=== PATIENT | male | born 1980 | race Caucasian/White ===

== ENCOUNTER 2024-11-29 14:59 | Inpatient (IN) | payer MEDICAID ==
[~2024-11-29] VITALS: Ht 172.7 cm; Wt 61.1 kg
[2024-11-29 15:08] VITALS: PULSE 76; RESP 18; O2SAT 100
--- NOTE | 2024-11-29 15:08 | ELECTROCARDIOGRAPH REPORT ---
[facility] [place] Test Date: 2024-11-29 Test Time: 15:05:48 Pat Name: ANUJ ROBBINS Department: EMERGENCY ROOM Room: Gender: M Shearer Operator: PM : 1980 Requested By: DEEDEE SZYMANSKI Order Number: [id number] Reading MD: Measurements Intervals [place] Rate: 77 P: 59 HI: 143 QRS: 32 QRSD: 94 T: 205 QT: 521 QTc: 590 Interpretive Statements Sinus rhythm Probable left atrial enlargement Probable LVH with secondary repol abnrm Abnormal T, probable ischemia, anterior leads Prolonged QT interval Please click the below link to view image of tracing.
--- NOTE | 2024-11-29 15:18 | HISTORY AND PHYSICAL ---
History & Physical Providers to CC ~ History of Present Illness Reason for Admit\Complaint: Shortness of breath History of Present Illness The presenting illness patient says he has recurrent bronchitis apart from that he denies any other medical history. He says for the last 4-5 days he is having increasing shortness of breath and some dry cough. He denies any fevers or chills. He denies any history of hypertension. He was transferred to us from [facility] for an elevated blood pressure of more than 230 systolic. Patient was given couple of doses of hydralazine and the blood pressure came down to 160s and he was transferred. Patient is noted on a chest x-ray to have bilateral pneumonias he also had a CTA done at [place]. Patient also noted to have an elevated BNP. Patient also noted to be severely hypoxemic and put him on a BiPAP machine. After his sister O2 sats have improved. Repeat labs from [facility] ordered by the ER physician are still pending. Allergies: Coded Allergies: No Known Allergies (Unverified , 11/29/24) Past Medical History Past Medical History Past medical history significant for probably underlying chronic bronchitis and COPD Past surgical history nothing of significance Social history he smokes more than a pack a day drinks couple of times a month denies any drug abuse Allergies are NKDA Family history nothing of significance Review of systems negative for all 10 systems reviewed Exam Vitals: Vital Signs Date Time Temp Pulse Resp B/P (MAP) Pulse Ox O2 Delivery O2 Flow Rate FiO2 11/29/24 15:01 75 24 124/92 99 General: Patient is alert and oriented x4 in no acute distress lying down comfortably speaking in full sentences in spite of being on a BiPAP machine HEENT normocephalic nontraumatic head with very poor personal hygiene CVS first and second heart sounds are and sinus tachycardia Respiratory system has both rhonchi and crackles in bilateral bases and minimal expiratory wheezing right base more than left Abdomen is soft bowel sounds are positive it is nontender nondistended there is a golf ball size hematoma in the right lower quadrant which patient or myself or unable to explain he also has some scabs over his infraumbilical area Extremities no clubbing cyanosis or edema Neurological exam no focal deficits Additional Plan Assessment and plan -bilateral pneumonia Patient pancultured at [place] Started on IV Rocephin and azithromycin which I will continue We will also check his COVID and influenza -hypertensive emergency we will use hydralazine and clonidine p.r.n. for now -questionable underlying COPD Start the patient on nebulizer treatments p.r.n. -acute respiratory failure secondary to above Continue BiPAP ck abg's -hematoma over right lower quadrant Monitor -questionable CHF Check echocardiogram Diurese the patient Daily weights strict I&Os fluid restriction -check urine tox screen Even though patient denies any history of drug abuse -nicotine abuse patient advised against it -mildly elevated troponins monitor Do serial troponins and EKGs -patient is a full code Patient is started on DVT and GI prophylaxis Date of Service: Nov 29, 2024 Billing Provider: VINEET GREY MD Common Visit Codes: [id number] INP/OBS CARE (HIGH) VINEET GREY MD Nov 29, 2024 15:18
[2024-11-29] MEDS ORDERED: ondansetron/PF 4mg/2ml inj IV PRN (15:20)
[2024-11-29] MEDS ORDERED: HYDROcodone/acetaminophen 5mg/325mg tablet PO PRN (15:20)
[2024-11-29] MEDS ORDERED: magnesium sulf-water 2g/50mL 50 ML IV PRN (15:20)
[2024-11-29] MEDS ORDERED: magnesium sulf-water 4G/100mL 100 ML IV PRN (15:20)
[2024-11-29] MEDS ORDERED: ipratropium/albuterol 3ml nebule NEB PRN (15:20)
[2024-11-29] MEDS ORDERED: potassium Cl 40MEQ/1/2NS 520ml 520 ML IV PRN (15:20)
[2024-11-29] MEDS ORDERED: HYDROcodone/acetaminophen 10/325mg tab PO PRN (15:20)
[2024-11-29] MEDS ORDERED: mag hydrox/Alum hydrox/simeth 30ml oral suspension PO PRN (15:20)
[2024-11-29] MEDS ORDERED: magnesium Cl slow-release 64mg tablet PO PRN (15:20)
[2024-11-29 15:27] LABS: ABG BASE EXCESS -3.5 mmol/L (-2.0-3.0); ABG HCO3 20.1 mmol/L (21.0-28.0); ABG OXYGEN SATURATION 99.5 % (94.0-98.0); ABG PCO2 (T) 31.2 mmHg (35.0-48.0); ABG PH (T) 7.425 (7.350-7.450); ABG PO2 (T) 299.0 mmHg (83.0-108.0); ALLEN'S TEST POSITIVE; FCOHb 0.7 % (0.5-1.5); FHHb 0.5 % (0.0-5.0); FIO2 70.0 mmHg/%; FMetHb 0.3 % (0.0-1.5); FO2Hb 98.5 % (94.0-98.0); MODE MASK - BIPAP; PATIENT TEMPERATURE 36.4; RESPIRATORY RATE 16 b/min; TOTAL HEMOGLOBIN 12.8 G/dl (13.5-17.5)
[2024-11-29 15:32] LABS: MEAN PLATELET VOLUME 10.0 FL (7.4-10.4); RED CELL DISTRIBUTION WIDTH 14.4 % (11.5-14.5)
--- NOTE | 2024-11-29 15:53 | RADIOLOGY REPORT ---
EXAM: DI CHEST,SINGLE VIEW CLINICAL HISTORY: CHEST PAIN TECHNIQUE: Single AP view of the chest WID: COMPARISON: None FINDINGS: Lines and tubes: None Chest: The heart size and pulmonary vasculature is within normal limits. Ducts over the aortic arch. Diffuse interstitial opacities in the lungs. Small bilateral pleural effusions. No pneumothorax. The osseous structures are grossly intact. IMPRESSION: 1. Diffuse interstitial opacities of the lungs. DDX includes pulmonary edema, atypical pneumonia, or fibrosis / scarring. 2. Small bilateral pleural effusions.
[2024-11-29 15:55] LABS: CREATININE 2.34 MG/DL (0.60-1.10); TOTAL CARBON DIOXIDE 24.4 MMOL/L (24-32); eCRCL 39 ML/MIN; eGFR 31 ML/MIN
[2024-11-29 16:04] VITALS: PULSE 70; RESP 19; O2SAT 95
[2024-11-29 16:07] VITALS: PULSE 70; RESP 19; O2SAT 95
[2024-11-29] MEDS: potassium CL 10mEq/100ml bag 100 ML IV SCH (16:12)
--- NOTE | 2024-11-29 16:21 | Physician Documentation ---
History of Present Illness ~ Chief Complaint: Respiratory Distress Stated Complaint: SOB Time Seen by MD: 15:01 Source: patient, other Mode of Arrival: EMS, Stretcher Exam Limitations: no limitations HPI Patient transferred to sc from [facility]. Patient with no significant medical history but does not really see a doctor. Presented to [facility] this morning with 3-4 days of cough with green sputum production. Also presented with high blood pressure at 233/130. Initially had a white count of 13 with a potassium of 2.1 and a slightly elevated troponin of 0.123. [place] [address] [place] angio was negative for PE but showed atypical bilateral infiltrates. He was given Rocephin and azithromycin along with Lovenox and aspirin. Lactate was normal. He was given 2 doses of labetalol at 15 mg and 20 kg which his blood pressure improved to 160/100. He was given 40 of potassium IV and 40 of potassium p.o.. He is a smoker. Initially he was 90% on room air. Currently in our ER he denies any pain. He states he is feeling better sitting on the BiPAP. He was placed on BiPAP just has the flight team arrived at [facility] because he had become more short of breath. He had received 2 L of fluids at [facility]. Medication Reconciliation Allergies: Coded Allergies: No Known Allergies (Unverified , 11/29/24) Past Medical History Smoking Status: Current every day smoker Review of Systems All Other Systems at this time: Reviewed and Negative Physical Exam Vital Signs: Temperature: 97.6, Source: Oral, Heart Rate: 70, Respiratory Rate: 19, BP: 151/95, Pulse Oximetry: 95, Weight: 72.500 General Appearance: alert, other (On BiPAP, comfortable appearing) Neck: normal inspection Respiratory: lungs clear, normal breath sounds Chest: no accessory muscle use Cardiovascular: regular rate, rhythm, no edema Gastrointestinal: normal palpation, non-tender Extremities: normal inspection Skin: normal color, warm/dry Neurologic: oriented x4 Psychiatric: appropriate Progress Results/Orders Results/Orders Orders - DEEDEE SZYMANSKI MD PBNP (11/29/24 15:05) Chest,Single View (11/29/24 15:05) Abg (Arterial Blood Gas) (11/29/24 15:05) BMP (11/29/24 15:05) Hs Troponin I W Calculations (11/29/24 17:05) Hs Troponin I W Calculations (11/29/24 18:05) Page Hospitalist (11/29/24 15:14) Fill Out Med Reconciliation (11/29/24 15:14) Completed Orders - DEEDEE SZYMANSKI MD Cbc/Diff (11/29/24 15:05) Chest,Single View (11/29/24 15:05) Electrocardiogram (11/29/24 15:05) Hs Troponin I W Calculations (11/29/24 15:05) Vital Signs 11/29/24 11/29/24 11/29/24 11/29/24 15:01 15:08 15:19 15:20 Temp 97.6 Pulse 75 76 77 Resp 24 18 24 24 18 B/P (MAP) 124/92 156/102 (120) Pulse Ox 99 100 100 FiO2 70 70 Laboratory Tests Test 11/29/24 15:21 11/29/24 15:23 Blood Gas Specimen Type Arterial Blood Gas Puncture Site Lr O2 Saturation 99.5 H Arterial Blood pH (Temp corrected) 7.425 Arterial Blood pCO2 (Temp correct) 31.2 L Arterial Blood pO2 (Temp corrected) 299.0 H Arterial Blood PO2/FiO2 Ratio 4.31 Arterial Blood HCO3 20.1 L Arterial Blood Base Excess -3.5 L Arterial Blood Oxyhemoglobin 98.5 H Arterial Blood Carboxyhemoglobin 0.7 Arterial Blood Methemoglobin 0.3 Arterial Blood Deoxyhemoglobin 0.5 Davin Test Positive Blood Gas Hemoglobin 12.8 L Blood Gas Temperature 36.4 Blood Gas Set Respiration Rate 16 Blood Gas Modality Mask - bipap FiO2 70.0 Blood Gas Critical Value Called To Ismael roman rn White Blood Count 12.8 H Red Blood Count 3.73 L Hemoglobin 11.9 L Hematocrit 34.4 L Mean Corpuscular Volume 92.4 Mean Corpuscular Hemoglobin 31.8 H Mean Corpuscular Hemoglobin Concent 34.5 Red Cell Distribution Width 14.4 Platelet Count 87 L Mean Platelet Volume 10.0 Neutrophils (%) (Auto) 92.9 H Lymphocytes (%) (Auto) 4.5 L Monocytes (%) (Auto) 2.4 Eosinophils (%) (Auto) 0 Basophils (%) (Auto) 0.2 Neutrophils # (Auto) 11.9 H Lymphocytes # (Auto) 0.6 L Monocytes # (Auto) 0.3 Eosinophils # (Auto) 0.0 Basophils # (Auto) 0.0 CBC Comment Sodium Level 123 L Potassium Level 3.3 L Chloride Level 86 L Carbon Dioxide Level 24.4 Anion Gap 13 Blood Urea Nitrogen 21 H Creatinine 2.34 H Estimated GFR/1.73 m2 31 BUN/Creatinine Ratio 9.0 L Glucose Level 166 H Calcium Level 8.0 L Troponin I High Sensitivity 152 *H Albumin 2.1 L Chemistry Comments Medical Decision Making Additional Infomation Patient here with atypical pneumonia. Started on Rocephin and azithromycin. Troponin slightly bumped which is likely cardiac strain however he was placed [place] [address]. Given this the 2 L of fluids may have been a bit much and hence the BiPAP has given the patient's some improvement. Repeat potassium has come back at 3.3. Troponin here is 152 on a different scale. Patient remains stable. Does have flipped T-waves in V3 through V5 on ekg. Admitted under the hospitalist team. Departure Disposition: ADMITTED INPATIENT Admitted to Inpatient Unit: to hospitalist Admission Level of Care: Med/Surg with Tele Impression: Primary Impression: Bilateral pneumonia Qualified Codes: J18.9 - Pneumonia, unspecified organism Additional Impression: Respiratory failure Qualified Codes: J96.00 - Acute respiratory failure, unspecified whether with hypoxia or hypercapnia Condition: Stable Referrals: NO PRIMARY CARE PROVIDER (PCP) Signature Scribe Signature: No scribe Attestation: No scribe DEEDEE SZYMANSKI MD Nov 29, 2024 16:21
[2024-11-29 16:23] LABS: PRO BRAIN NATRIURETIC PEPTIDE > 30000 PG/ML (0-125)
[2024-11-29 16:58] LABS: URINE AMPHETAMINE SCREEN NEGATIVE (Neg); URINE BARBITUATE SCREEN NEGATIVE (Neg); URINE BENZODIAZEPINES SCREEN NEGATIVE (Neg); URINE CANNABINOID SCREEN NEGATIVE (Neg); URINE COCAINE SCREEN NEGATIVE (Neg); URINE METHADONE SCREEN NEGATIVE (Neg); URINE OPIATE SCREEN NEGATIVE (Neg); URINE PHENCYCLIDINE SCREEN NEGATIVE (Neg)
[2024-11-29] MEDS ORDERED: NO HOME MEDS (17:17)
[2024-11-29] MEDS: HEPARIN DRIP-CARDIAC**PHARMACIST-TO-DOSE IV ONE (17:50)
[2024-11-29] MEDS: heparin 25,000 UNIT/250ml bag 250 ML IV PRN (18:27)
[2024-11-29] MEDS: heparin 10,000 units/1 ML INJ IV ONE (18:27)
[2024-11-29 18:39] VITALS: PULSE 77; RESP 22; O2SAT 95
[2024-11-29] MEDS: K and/or MAG REPLACEMENT MC SCH (20:00)
[2024-11-29] MEDS: docusate sod 100mg capsule PO SCH (20:00)
[2024-11-29] MEDS: hydrALAZINE 20mg/ml inj. IV PRN (21:03)
[2024-11-29 22:41] VITALS: PULSE 81; RESP 14; O2SAT 99
[2024-11-30] VITALS (9 sets, daily range): BP systolic 150–193; BP diastolic 79–109; PULSE 80–92; RESP 13–19; TEMP 97.7–98; O2SAT 92–98
[2024-11-30 01:10] LABS: MEAN PLATELET VOLUME 10.7 FL (7.4-10.4); RED CELL DISTRIBUTION WIDTH 14.6 % (11.5-14.5)
[2024-11-30 01:34] LABS: CREATININE 1.94 MG/DL (0.60-1.10); TOTAL CARBON DIOXIDE 29.3 MMOL/L (24-32); eCRCL 48 ML/MIN; eGFR 38 ML/MIN
[2024-11-30 01:36] LABS: PRO BRAIN NATRIURETIC PEPTIDE > 30000 PG/ML (0-125)
[2024-11-30] MEDS: heparin 10,000 units/1 ML INJ IV PRN (02:05)
[2024-11-30] MEDS: potassium Cl 40MEQ/1/2NS 520ml 520 ML IV ONE (02:09)
[2024-11-30] MEDS: MESSAGE TO NURSING IV ONE ×4 (02:23→22:30)
[2024-11-30] MEDS ORDERED: enoxaparin 40mg/0.4ml syringe SUBCUT SCH (08:00)
[2024-11-30] MEDS ORDERED: furosemide 10 MG/1 ML 10ml inj IV SCH (08:00)
[2024-11-30] MEDS: CefTRIAXone/D5W-Rocephin 1gm 50 ML IV SCH (09:11)
[2024-11-30] MEDS: pantoprazole 40mg Tablet.DR PO SCH (09:21)
--- NOTE | 2024-11-30 09:37 | PROGRESS NOTE ---
Daily Progress Note Providers to CC ~ Antibiotic Timeout Antibiotic Ordered?: Yes Subjective cc thank you for everything Dr. Villa am Breathing so much easier Chest pain resolved Objective Vital Signs Date Time Temp Pulse Resp B/P (MAP) Pulse Ox O2 Delivery O2 Flow Rate FiO2 11/30/24 09:19 83 11/30/24 07:08 16 94 Room Air* 0 21 11/30/24 06:40 179/103 (128) 11/29/24 15:19 97.6 Result Diagram: 11/30/2410011/30/24 010 General: Patient is alert and oriented x4 in no acute distress lying down comfortably speaking in full sentences off of O2 HEENT normocephalic nontraumatic head with very poor personal hygiene CVS first and second heart sounds are and sinus tachycardia Respiratory system has both rhonchi and crackles in bilateral bases and minimal expiratory wheezing right base more than left Abdomen is soft bowel sounds are positive it is nontender nondistended there is a golf ball size hematoma in the right lower quadrant which patient or myself or unable to explain-is not any better or worse he also has some scabs over his infraumbilical area Extremities no clubbing cyanosis or edema Neurological exam no focal deficits Additional Plan Assessment and plan -bilateral pneumonia Patient pancultured at [place] Started on IV Rocephin and azithromycin which I will continue We will also check his COVID and influenza -hypertensive emergency we will use hydralazine and clonidine p.r.n. for now -questionable underlying COPD Start the patient on nebulizer treatments p.r.n. -acute respiratory failure secondary to above Improving -hematoma over right lower quadrant Monitor -questionable CHF Check echocardiogram preliminary EF is 50-55% Diurese the patient Daily weights strict I&Os fluid restriction -check urine tox screen Even though patient denies any history of drug abuse -nicotine abuse patient advised against it -mildly elevated troponins monitor Do serial troponins and EKGs -patient is a full code Patient is started on DVT and GI prophylaxis Coagulation Studies Laboratory Tests Test 11/30/24 08:00 APTT (Heparin Protocol) 38 SECONDS (45-60) L Coagulation Comments Date of Service: Nov 30, 2024 Billing Provider: VINEET GREY MD Common Visit Codes: [id number] INP/OBS CARE(HIGH) VINEET GREY MD Nov 30, 2024 09:37
[2024-11-30] MEDS: azithromycin/NS 500mg/250ml 250 ML IV SCH (10:13)
[2024-11-30] MEDS: potassium Cl 20 mEq SR tablet PO PRN (10:39)
[2024-11-30] MEDS ORDERED: hydrALAZINE 20mg/ml inj. IV PRN (11:45)
--- NOTE | 2024-11-30 12:25 | CARDIOLOGY REPORT ---
APPROVED REPORT EXAM: Comprehensive 2D, Doppler, and color-flow Echocardiogram. Patient Location: 4[address] Blood Pressure: 186/98 mmHg Heart Rate: 89 bpm Rhythm: Sinus Rhythm Indications Congestive Heart Failure Hypertensive Emergency Pneumonia/ Bilateral Infiltrates Respiratory Failure Ehr Trainer: None Previous echo: None (Transfer from [facility]) 2D Dimensions LA Diam4.5 cm LVOT Diameter 2.06 (1.8-2.4cm) IVC 22.02 mmCO 7.4 L/min M-Mode Dimensions RVDd 3.44 (2.1-3.2cm) Left Atrium(MM) 4.65 (2.5-4.0cm) IVSd 1.21 (0.7-1.1cm) LVDd 5.44 (4.0-5.6cm) Aortic Root 2.93 (2.2-3.7cm) PWd 1.34 (0.7-1.1cm) Aortic Cusp Exc 2.05 (1.5-2.0cm) IVSs 1.10 cm MV EPSS 1.5 (<0.5cm) LVDs 3.76 (2.0-3.8cm) FS (%) 31 % PWs 1.34 cm ESV(Teich) 60.2 ml LVEF(%) 58 (>50%) Aortic Valve AoV Peak Ha. 143.4 cm/s AoV VTI 26.2 cm AO Peak GR. 8.2 mmHg AO Mean GR. 5 mmHg LVOT VTI 19.60 cm LVOT Peak Ha. 99.8 cm/s [place](VTI)/BSA 2.49 cm2/m2 [place] (VTI) 2.49 cm2 Mitral Valve MV E Velocity 86.4 cm/s MV Peak Gr. 6 mmHg MV DECEL TIME 116 ms MV A Velocity 52.7 cm/s MV PHT 48 ms E/A Ratio 1.6 MVA (PHT) 4.58 cm2 MV HHzq007.7 cm/s TDI Medial E' P. V 6.86 cm/s E/Medial E' 12.6 Tricuspid Valve TR P. Velocity 312 cm/s RAP ESTIMATE 15 mmHg TR Peak Gr. 39 mmHg RVSP 44 mmHg LEFT VENTRICLE Normal LV size and wall thickness. Overall systolic function is normal. Overall LVEF is 55-60%. RIGHT VENTRICLE RV is normal size and function. Estimated PA systolic pressure is 44 mmHg. ATRIA Left atrium is moderately dilated. AORTIC VALVE Trileaflet AV appears sclerotic without stenosis or insufficiency. MITRAL VALVE Mild MV annular calcification without stenosis. Mild regurgitation. TRICUSPID VALVE TV appears structurally normal with mild regurgitation. PULMONIC VALVE Normal PV without stenosis, physiologic insufficiency. GREAT VESSELS The aortic root is normal in size. IVC is dilated and collapses less than 50% with inspiration. PERICARDIUM Normal pericardium. No pericardial effusion seen. Other Information Study Quality: Adequate Conclusion Normal LV size and wall thickness. Overall systolic function is normal. Overall LVEF is 55-60%. RV is normal size and function. Estimated PA systolic pressure is 44 mmHg. Left atrium is moderately dilated. Trileaflet AV appears sclerotic without stenosis or insufficiency. Mild MV annular calcification without stenosis. Mild regurgitation. TV appears structurally normal with mild regurgitation. Normal PV without stenosis, physiologic insufficiency. Normal pericardium. No pericardial effusion seen.
[2024-11-30] MEDS: magnesium hydroxide 30ml (MOM) UD suspension PO PRN (19:16)
[2024-12-01] VITALS (12 sets, daily range): BP systolic 142–178; BP diastolic 76–105; PULSE 86–115; RESP 14–28; TEMP 97.6–98.3; O2SAT 91–98
[2024-12-01 06:43] LABS: MEAN PLATELET VOLUME 12.4 FL (7.4-10.4); RED CELL DISTRIBUTION WIDTH 14.9 % (11.5-14.5)
[2024-12-01 07:00] LABS: CREATININE 2.37 MG/DL (0.60-1.10); PRO BRAIN NATRIURETIC PEPTIDE 25633 PG/ML (0-125); TOTAL CARBON DIOXIDE 28.6 MMOL/L (24-32); eCRCL 37 ML/MIN; eGFR 30 ML/MIN
[2024-12-01 07:45] LABS: PLATELET ESTIMATE NORMAL
[2024-12-01] MEDS: MESSAGE TO NURSING IV ONE ×2 (08:04→14:06)
[2024-12-01] MEDS: potassium Cl 20 mEq SR tablet PO PRN (08:12)
--- NOTE | 2024-12-01 13:53 | PROGRESS NOTE ---
Daily Progress Note Providers to CC ~ Antibiotic Timeout Antibiotic Ordered?: No Subjective No new complaint, RN reports patient gets short of breath on exertion . Objective Vital Signs Date Time Temp Pulse Resp B/P (MAP) Pulse Ox O2 Delivery O2 Flow Rate FiO2 12/01/24 09:45 98.3 86 16 154/81 (105) 97 Room Air 12/01/24 09:20 0 21 Result Diagram: 12/01/24 0559 12/01/24 0559 Patient is alert and oriented x4 in no acute distress lying down comfortably speaking in full sentences off O2 HEENT normocephalic nontraumatic, EOMI HEART: RRR. No murmur gallop or rub , sinus tachycardia CHEST Cleart to auscultation , no wheezes crackles or rhonchi Abdomen is soft bowel sounds are positive it is nontender nondistended Extremities no clubbing cyanosis Or edema Neurological exam no focal deficits SKIN: Right flank bruise Catheter noted Coagulation Studies Laboratory Tests Test 12/01/24 12:55 APTT (Heparin Protocol) 42 SECONDS (45-60) L Coagulation Comments Other Results Medications reviewed Problem\Assessment\Plan -Biateral pneumonia Patient pancultured at [place] Continue IV Rocephin and azithromycin -Hypertensive emergency : hydralazine and clonidine p.r.n. for now - Probable COPD Start the patient on nebulizer treatments p.r.n. -Acute respiratory failure secondary to above Resolved -Hematoma over right lower quadrant Continue monitor -Actue exacerbation of HFpEF Check echocardiogram preliminary EF is 50-55% Diurese Daily weights strict I&Os fluid restriction -Type 2 SC due to demand ischemia Do serial troponins and EKGs DC IV Heparin -patient is a full code -KELSEY/ CKD Conuslt nephrology, texted Dr. Chou, Continue monitor [facility] - Hypokalemia Replace per protocol Date of Service: Dec 01, 2024 Billing Provider: ALIA ZEPEDA MD Common Visit Codes: [id number] INP/OBS CARE(HIGH) ALIA ZEPEDA MD Dec 01, 2024 13:53
[2024-12-01] MEDS: methylPREDNISolone sod succ/PF 40mg inj. IV SCH (16:26)
[2024-12-01] MEDS: ipratropium/albuterol 3ml nebule NEB PRN (17:53)
[2024-12-02] VITALS (17 sets, daily range): BP systolic 153–183; BP diastolic 92–109; PULSE 92–123; RESP 16–29; TEMP 97.1–98.2; O2SAT 92–99
[2024-12-02 01:14] LABS: LEUKOCYTE ESTERASE ,URINE NEGATIVE (Neg); NITRITES, URINE NEGATIVE (Neg); OCCULT BLOOD,URINE SMALL (Neg)
[2024-12-02 01:17] LABS: UA COLLECTION TYPE NON-SPECIFIED
[2024-12-02 01:20] LABS: MUCUS STRANDS FEW /LPF (Neg); SQUAMOUS EPITHELIAL CELL,UR FEW /LPF (FEW)
[2024-12-02 01:29] LABS: OSMOLALITY UA 196 MOSM/K (50-1400)
[2024-12-02 01:40] LABS: CREATININE,URINE RANDOM 38.0 MG/DL; TOTAL PROTEIN,URINE RANDOM 70.5 MG/DL
[2024-12-02 02:00] LABS: UA EOSINOPHILS NO EOS /HPF
--- NOTE | 2024-12-02 05:38 | RADIOLOGY REPORT ---
CHEST RADIOGRAPH Indication: SOB Technique: Single frontal view of the chest was obtained Comparison: DI CHEST SINGLE VIEW on DOS: 11/29/24 FINDINGS: Lines and Tubes: None Lungs: Increased interstitial prominence since the prior study. Pleura: Stable bilateral pleural effusions. No pneumothorax. Cardiomediastinal contours: Stable. Bones: No acute osseous abnormality. IMPRESSION: 1. Worsening pulmonary vascular congestion. 2. Small bilateral pleural effusions not significantly changed.
[2024-12-02 06:17] LABS: MEAN PLATELET VOLUME 12.0 FL (7.4-10.4); RED CELL DISTRIBUTION WIDTH 15.2 % (11.5-14.5)
[2024-12-02 06:45] LABS: CREATININE 2.60 MG/DL (0.60-1.10); PRO BRAIN NATRIURETIC PEPTIDE 27964 PG/ML (0-125); TOTAL CARBON DIOXIDE 23.1 MMOL/L (24-32); eCRCL 33 ML/MIN; eGFR 27 ML/MIN
[2024-12-02 06:58] LABS: LARGE PLATELETS FEW; PLATELET ESTIMATE NORMAL
--- NOTE | 2024-12-02 08:18 | CONSULTATION REPORT ---
Consult Providers to CC SOB History of Present Illness Reason for Admit\Complaint: SOB History of Present Illness Outside transfer from [facility], several days of worsening SOB with cough, seen in ED for hypertensive emergency, SBP initially 230, transferred for higher level of care, imaging shows likely pneumonia, CTA no PE at outside hospita. Allergies: Coded Allergies: No Known Allergies (Unverified , 11/29/24) Active prescriptions Outside transfer from [facility], SOB, evaluated for PE, CTA with contrast, some increased vascularity on CXR, possible pneumonia, CT in process, KELSEY likely multifactorial, contrast, hypertensive emergency Home Medications Home Medications Active Reported No Home Medications (Home Med List) Each Past Medical History Past Medical History Reviewed Past Surgical History Surgical History Comment Reviewed Family History Family History: Patient reports no known family medical history. Past Social History Social History Comment Reviewed ROS ROS all other systems non-contributory Exam Vitals: Vital Signs Date Time Temp Pulse Resp B/P (MAP) Pulse Ox O2 Delivery O2 Flow Rate FiO2 12/02/24 06:00 94 12/02/24 06:00 98.0 17 169/99 (122) 92 Room Air 12/02/24 04:02 0.0 21 RRR w/o murmur CTAB, no wheeze +BS, NT No edema Diagnostic Data Last Recorded Lab Results: 12/02/24 0526 12/02/24 0526 Diagnostic Data: I & O 12/02/24 07:00 Intake Total 1220 ml Output Total 1200 ml Balance 20 ml Intake Oral 1220 ml Output Urine Total 1200 ml Laboratory Tests Test 12/01/24 12:55 APTT (Heparin Protocol) 42 SECONDS (45-60) L Coagulation Comments Problems: (1) Acute kidney injury superimposed on CKD Assessment & Plan: Most consistent with pre-renal physiology, not convinced this is cardiac, likely poor intake with his illness, and naturesis with hypertensive emergency causing volume depletion,I will try to find out what his baseline renal function is, SASHA in process, assess volume status, orthostatic vitals, dailiy urine lytes, creastinine, and urea, unble get urine urea since yesterday 3 orders placed still no results (2) Respiratory failure Status: Acute Assessment & Plan: Continue Nebs, O2, pneumonia treatment, CXR in am (3) Bilateral pneumonia Status: Acute Assessment & Plan: Continue IV AB, Nebs and corticosteroids Problem Qualifiers (1) Respiratory failure: Chronicity: acute Respiratory failure complication: unspecified whether with hypoxia or hypercapnia Qualified Codes: J96.00 - Acute respiratory failure, unspecified whether with hypoxia or hypercapnia (2) Bilateral pneumonia: Pneumonia type: due to unspecified organism Lung location: unspecified part of lung Qualified Codes: J18.9 - Pneumonia, unspecified organism TARIQ OCHOA III, DO Dec 02, 2024 08:17
--- NOTE | 2024-12-02 13:12 | RADIOLOGY REPORT ---
INDICATION: KELSEY TECHNIQUE: Multiple real-time sonographic images of the kidneys and bladder were obtained. COMPARISON: None FINDINGS: The right kidney measures 8 cm in length, which is normal in size. There is normal echogeni city of the right kidney. No hydronephrosis. The left kidney measures 12 cm in length, which is normal in size. There is normal echogenicity of th e left kidney. No hydronephrosis. No large intraluminal masses are seen in the bladder. Small bilateral pleural effusion IMPRESSION: 1. Normal sonographic appearance of the kidneys. No hydronephrosis. 2. Small bilateral pleural effusions.
--- NOTE | 2024-12-02 14:38 | RADIOLOGY REPORT ---
Procedure: CT CT CHEST Reason for study/Clinical History: infiltrate Comparison Study: None TECHNIQUE: Multidetector CT of the chest was performed from the lung apices to the upper abdomen with out the use of intravenous contract. Axial, coronal and sagittal multiplanar reformats were performed . Radiation Dose Information: CT Dose: CTDI volume is 10.3 mGy. Dose-length product is 409.2 mGy*cm The dose indicators for CT are the volume Computed Tomography (CT) Dose Index (CTDIvol) and the Dose Length Product (DLP), and are measured in units of mGy and mGy-cm, respectively. These indicators are not patient dose, but values generated from the CT scanner acquisition factors. The report includes radiation exposure data for exposures received during this examination. FINDINGS: Lower neck: Unremarkable. Lungs: Moderate centrilobular emphysema. Patchy bilateral lower lobe airspace opacities. Diffuse int erlobular septal thickening most prominent at the lung bases. Heart/Vascular Structures: Mild 3-vessel coronary artery disease. Cardiomegaly. Coronary artery calci fications. Vascular calcifications of the aorta. Lymph Nodes: No adenopathy Pleura: Small bilateral pleural effusions. Musculoskeletal: No acute osseous abnormality. Soft tissues: Normal. Upper abdomen: Limited portions of the upper abdomen are unremarkable. IMPRESSION: Findings are suspicious for cHF/fluid overload with possible superimposed airspace disease in the marixa g bases.
--- NOTE | 2024-12-02 17:35 | PROGRESS NOTE ---
Daily Progress Note Providers to CC ~ Antibiotic Timeout Antibiotic Ordered?: Yes Subjective Patient continues to have shortness of breaths. Objective Vital Signs Date Time Temp Pulse Resp B/P (MAP) Pulse Ox O2 Delivery O2 Flow Rate FiO2 12/02/24 15:42 97.1 107 29 169/107 (127) 98 Nasal Cannula 2.0 12/02/24 08:59 28 Result Diagram: 12/02/2452512/02/24525 Patient is alert and oriented x4 in no acute distress lying down comfortably speaking in full sentences off O2 HEENT normocephalic nontraumatic, EOMI HEART: RRR. No murmur gallop or rub , sinus tachycardia CHEST Cleart to auscultation , no wheezes crackles or rhonchi Abdomen is soft bowel sounds are positive it is nontender nondistended Extremities no clubbing cyanosis Or edema Neurological exam no focal deficits SKIN: Right flank bruise Catheter noted Coagulation Studies Laboratory Tests Test 12/01/24 12:55 APTT (Heparin Protocol) 42 SECONDS (45-60) L Coagulation Comments Other Results Medications reviewed Problem\Assessment\Plan -? Biateral pneumonia Patient pancultured at [facility] . Presently on IV Rocephin and azithromycin. Repeat chest x-ray reviewed. -hyponatremia: Likely due to diuretics. Continue monitor daily BMP. DC Lasix. -history of tobacco use: Nicotine patch as necessary -Hypertensive emergency : hydralazine and clonidine p.r.n. for now - Probable COPD Continue Solu-Medrol and inhaled bronchodilators. -Acute respiratory failure secondary to above Continue supplemental oxygen -Hematoma over right lower quadrant Continue monitor, heparin has been discontinued -Actue exacerbation of HFpEF Check echocardiogram preliminary EF is 50-55% Diurese Daily weights strict I&Os fluid restriction -Type 2 TX due to demand ischemia DC IV Heparin due to the hematoma. Cardiology consultation requested -KELSEY/ CKD Nephrology consultation was requested and patient is now being followed by Dr. Chou, Continue monitor garcia BMP - Hypokalemia Replace per protocol Other issues: I was contacted by the RN Rachael early this morning that patient wants to change his doctor. I had a long discussion with the patient. Patient states me that he is frustrated about his diagnosis and has been told different things by multiple different doctors. He was transferred from [facility] stating that he has a heart problem. Patient states he has a people waiting for him to give them answers. After a long discussion and explanation to the patient that his diagnosis does not seem to be what he has been treated for. I have explained to the patient that if he just had a heart failure, he would have improved by now however the fact that his chest x-ray continues to be worse, his chest x-ray is much worse and the auscultation of his lungs does not match the chest x-ray findings or be consistent with a diagnosis of CHF. I have also explained to the patient that because of Lasix, his renal function is getting worse and I need assistance from consultants. I have requested Dr. Mast to see the patient. I am concerned that patient may have interstitial lung disease/ARDS etc.. A CT chest was ordered. After spending about an hour, patient has understood even though he remains frustrated because he is not improving. Patient does not wish to change his doctor and has a agreed to continue his treatment under my care Critical care time spent in excess of 35 minutes. Patient will be transferred to PCU for further higher level of care. Date of Service: Dec 02, 2024 Billing Provider: ALIA ZEPEDA MD Common Visit Codes: [id number] CARE 30-74 MIN ALIA ZEPEDA MD Dec 02, 2024 17:35
--- NOTE | 2024-12-02 23:50 | CONSULTATION REPORT ---
Consult Consult Consultation Reason for Consult: PNA Consulting Provider: Dr. Khan Antibiotic Days: Rocephin 3, Azithro 3 Lines: PIV Micro: none HPI: Patient is a 44 year old male with noncontributory past medical history who was transferred to [facility] from [place] on 11/29 for hypertensive emergency. He was admitted for CAP and placed on Rocephin/Azithro. Despite 4 days of that therapy, he remains hypoxic (on 4L) so ID is asked to consult. On today's exam he states that he was feeling a "chest cold" for a few days prior to his seeking medical care. He describes this as cough, congestion, myalgias but states that he had no known sick contacts. His COVID testing was negative but flu is still pending. Of note, he has elevated troponins and came with a BNP greater than the upper limits of normal. Past Medical/Surgical History: chronic bronchitis Current Medications Medications (Trade) Dose Ordered Sig/Grace Route PRN Reason Start Time Stop Time Status Last Admin Dose Admin Docusate Sodium (Colace capsule) 100 mg BID PO 11/29/24 20:00 12/02/24 19:08 100 MG Magnesium Hydroxide (milk of magnesia oral suspension) 30 ml DAILY PRN PO constipation 11/29/24 15:20 11/30/24 19:16 30 ML Potassium Chloride (K-DUR tablet) 20 meq Q4H PRN PO Potassium 3.1-3.4 11/29/24 15:20 12/02/24 15:19 DC 12/01/24 08:12 20 MEQ Potassium Chloride (K-DUR tablet) 40 meq Q4H PRN PO Potassium 3.0 or less 11/29/24 15:20 12/02/24 15:19 DC 12/01/24 20:39 40 MEQ Clonidine (Catapres tablet) 0.1 mg Q4H PRN PO high blood pressure 11/29/24 15:20 12/01/24 22:03 0.1 MG Hydralazine HCl (Apresoline inj.) 10 mg Q6H PRN IV high blood pressure 11/29/24 15:20 12/02/24 20:14 10 MG Albuterol/ Ipratropium (ipratrop/ albuterol 0.5-3(2.5) MG/3ml nebule) 3 ml Q4H PRN NEB SOB or wheezing 11/29/24 15:20 12/02/24 17:57 3 ML Ceftriaxone Sodium 50 ml @ 100 mls/hr DAILY IV 11/30/24 08:00 12/02/24 08:53 100 MLS/HR Azithromycin 250 ml @ 250 mls/hr Q24H IV 11/30/24 08:00 12/02/24 10:08 250 MLS/HR Pantoprazole Sodium (Protonix) 40 mg BKF PO 11/30/24 07:30 12/02/24 08:52 40 MG Furosemide (Lasix inj) 40 mg DAILY IV 11/29/24 15:35 12/02/24 14:59 DC 12/01/24 08:14 40 MG Methylprednisolone Sodium Succinate (SoluMEDROL 125mg inj) 125 mg Q8H IV 11/29/24 16:00 12/01/24 14:07 DC 12/01/24 08:14 125 MG Potassium Chloride 100 ml @ 100 mls/hr Q1H IV 11/29/24 15:55 11/29/24 16:54 DC 11/29/24 16:12 100 MLS/HR Heparin Protocol (Heparin Drip - Cardiac - Pharmacist To Dose) 1 ea ONCE ONCE IV 11/29/24 17:50 11/29/24 17:51 DC 11/29/24 17:50 1 EA Heparin Sodium (Porcine) (heparin 10,000 unit/ml 1ml inj) 4,000 units ONCE ONCE IV 11/29/24 17:50 11/29/24 18:11 DC 11/29/24 18:27 4,000 UNITS Heparin Sodium/ Dextrose 250 ml @ 13 mls/hr [id number] PRN IV TO MAINTAIN PTT WITHIN RANGE 11/29/24 18:10 12/01/24 14:07 DC 12/01/24 14:06 13 MLS/HR Heparin Sodium (Porcine) (heparin 10,000 unit/ml 1ml inj) bolus for correct... PRN PRN IV per protocol-CARDIAC 11/29/24 18:10 12/02/24 14:59 DC 12/01/24 14:04 2,600 UNITS Non-Formulary Medication 1 each ONCE ONCE IV 11/30/24 01:35 11/30/24 01:53 DC 11/30/24 02:23 1 EACH Potassium Chloride 520 ml @ ud STK-MED ONCE IV 11/30/24 01:58 11/30/24 06:06 DC 11/30/24 02:09 125 MLS/HR Amlodipine Besylate (Norvasc tablet) 5 mg DAILY PO 11/30/24 11:45 12/02/24 08:52 5 MG Methylprednisolone Sodium Succinate (Solu-Medrol 40mg inj.) 40 mg Q8H IV 12/01/24 16:00 12/02/24 14:58 DC 12/02/24 08:53 40 MG Furosemide (Lasix inj) 40 mg ONCE ONCE IV 12/02/24 04:40 12/02/24 04:45 DC 12/02/24 04:54 40 MG Carvedilol (Coreg tablet) 3.125 mg BID PO 12/02/24 10:10 12/02/24 19:08 3.125 MG Methylprednisolone Sodium Succinate (SoluMEDROL 125mg inj) 125 mg Q6H IV 12/02/24 15:00 12/02/24 19:08 125 MG Social History: + tobacco use Family History: Noncontributory ROS: As in HPI, otherwise negative Objective: Vitals: Afebrile, 107, 16, 178/95, 96% on 4L General: A&Ox3, NAD HEENT: NC/AT, normal conjunctiva, no oral lesions CV: Regular Resp: Crackles, deep breath induces cough Abd: Soft, nontender, nondistended Ext: No rash Lines: PIV ok Laboratory Tests 12/02/24 05:26 12/02 CT Findings are suspicious for cHF/fluid overload with possible superimposed airspace disease in the lung bases. Assessment: // CAP - patient describes a prodromal "cold" that may have been the inciting incident for his fluid overload/HTN emergency that looks to be the more likely eitiology of his respiratory failure // Leukocytosis, Afebrile on steroids // Fluid overload // HTN emergency // KELSEY // Antibiotic Allergies: none known Plan: - Continue Rocephin/Azithro 1 more day - Would DC Steroids as they mask any symptoms of infection - Follow up flu testing; add coxsackie serologies - Fluid management per Nephro - Physical therapy - Thank you for the consult, will continue to follow IVONNE MONTIEL DO Dec 02, 2024 23:50
[2024-12-03] VITALS (13 sets, daily range): BP systolic 154–179; BP diastolic 89–110; PULSE 92–105; RESP 14–20; TEMP 97.7–97.9; O2SAT 94–99
[2024-12-03 02:50] LABS: LEUKOCYTE ESTERASE ,URINE NEGATIVE (Neg); NITRITES, URINE NEGATIVE (Neg); OCCULT BLOOD,URINE TRACE-INTACT (Neg)
[2024-12-03 02:51] LABS: UA COLLECTION TYPE NON-SPECIFIED
[2024-12-03 02:55] LABS: MUCUS STRANDS FEW /LPF (Neg); SQUAMOUS EPITHELIAL CELL,UR FEW /LPF (FEW)
[2024-12-03 02:56] LABS: HYALINE CASTS 0-3 /LPF (NEGATIVE)
[2024-12-03 03:06] LABS: OSMOLALITY UA 469 MOSM/K (50-1400)
[2024-12-03 03:12] LABS: UA EOSINOPHILS RARE EOS /HPF
[2024-12-03 03:14] LABS: CREATININE,URINE RANDOM 75.0 MG/DL; TOTAL PROTEIN,URINE RANDOM 143.5 MG/DL; UA PROTEIN/CREATININE RATIO 1.91 mg/mg Cr (0-0.16); UA UREA RANDOM 977.0 MG/DL
[2024-12-03 06:28] LABS: MEAN PLATELET VOLUME 12.0 FL (7.4-10.4); RED CELL DISTRIBUTION WIDTH 15.2 % (11.5-14.5)
[2024-12-03 07:01] LABS: HIV ANTIBODY 1&2 RAPID NON-REACTIVE (Neg)
[2024-12-03 07:09] LABS: CREATININE 2.07 MG/DL (0.60-1.10); TOTAL CARBON DIOXIDE 26.4 MMOL/L (24-32); eCRCL 43 ML/MIN; eGFR 35 ML/MIN
[2024-12-03 09:21] LABS: LARGE PLATELETS FEW; PLATELET ESTIMATE NORMAL
--- NOTE | 2024-12-03 15:54 | PROGRESS NOTE ---
Daily Progress Note Providers to CC ~ Antibiotic Timeout Antibiotic Ordered?: Yes Subjective No new complaints, patient reports feeling better. Objective Vital Signs Date Time Temp Pulse Resp B/P (MAP) Pulse Ox O2 Delivery O2 Flow Rate FiO2 12/03/24 14:00 97.9 99 14 154/89 (110) 99 Nasal Cannula 2.0 12/03/24 11:40 28 Result Diagram: 12/03/24 0543 12/03/24 0543 Patient is alert and oriented x4 in no acute distress lying down comfortably speaking in full sentences off O2 HEENT normocephalic nontraumatic, EOMI HEART: RRR. No murmur gallop or rub , sinus tachycardia CHEST Cleart to auscultation , no wheezes crackles or rhonchi Abdomen is soft bowel sounds are positive it is nontender nondistended Extremities no clubbing cyanosis Or edema Neurological exam no focal deficits SKIN: Right flank bruise Catheter noted Coagulation Studies Laboratory Tests Test 12/01/24 12:55 APTT (Heparin Protocol) 42 SECONDS (45-60) L Coagulation Comments Other Results Medications reviewed Problem\Assessment\Plan - Community acquired biateral pneumonia likely atyptical . Continue IV Rocephin and azithromycin. Repeat chest x-ray and CT chest reviewed. -hyponatremia: Likely due to diuretics. Continue monitor -history of tobacco use: Nicotine patch as necessary -Hypertensive emergency : hydralazine and clonidine p.r.n. for now - Probable COPD Continue Solu-Medrol and inhaled bronchodilators. -Acute respiratory failure secondary to above Continue supplemental oxygen -Hematoma over right lower quadrant Continue monitor, heparin has been discontinued -Actue exacerbation of HFpEF Check echocardiogram preliminary EF is 50-55% Diurese Daily weights strict I&Os fluid restriction -Type 2 OH due to demand ischemia DC IV Heparin due to the hematoma. Cardiology consultation requested -KELSEY/ CKD Creatinine trending down. Nephrology consultation was requested and patient is now being followed by Dr. Villagomez, Continue monitor garcia BMP - Hypokalemia Replace per protocol HFpEF : Lasix has been discontinued , continue monitor T2MI due to demand ischemia : Patient does not have any complaints of chest pain. Code status: Full code. Date of Service: Dec 03, 2024 Billing Provider: ALIA ZEPEDA MD Common Visit Codes: [id number] INP/OBS CARE(HIGH) ALIA ZEPEDA MD Dec 03, 2024 15:54
[2024-12-03 16:47] LABS: TOTAL PROTEIN 24HR,URINE 1968.6 MG/24HR (28-141); TOTAL VOLUME 24HRS,URINE 1700.0 ML
--- NOTE | 2024-12-03 19:36 | PROGRESS NOTE ---
Progress Note Dictate Providers to CC ~ Progress Note: Outside transfer from [facility], SOB, evaluated for PE, CTA with contrast, some increased vascularity on CXR, possible pneumonia, CT in process, KELSEY likely multifactorial, contrast, hypertensive emergency Antibiotic Ordered?: N/A Subjective Subjective Doing well this morning, appears more alert, he has no specific complaints Objective Vitals Vital Signs Date Time Temp Pulse Resp B/P (MAP) Pulse Ox O2 Delivery O2 Flow Rate FiO2 12/03/24 18:11 95 18 179/106 (130) 2.0 12/03/24 17:50 Nasal Cannula 12/03/24 17:44 95 28 12/03/24 14:00 97.9 RRR w/o murmur CTAB, no wheezes +BS, NT No edema Lab Results: 12/03/24 0543 12/03/24 0543 Coagulation Studies Laboratory Tests Test 12/01/24 12:55 APTT (Heparin Protocol) 42 SECONDS (45-60) L Coagulation Comments Problem\Assessment\Plan Problems/Diagnosis: (1) Acute kidney injury superimposed on CKD Assessment & Plan: Most consistent with pre-renal physiology, not convinced this is cardiac, likely poor intake with his illness, and naturesis with hypertensive emergency causing volume depletion,I will try to find out what his baseline renal function is, SASHA in process, assess volume status, orthostatic vitals, dailiy urine lytes, creastinine, and urea, unble get urine urea since yesterday 3 orders placed still no results, continue IVF if unable to take PO enough to match UOP (2) Respiratory failure Assessment & Plan: Continue Nebs, O2, pneumonia treatment, CXR in am (3) Bilateral pneumonia Assessment & Plan: Continue IV AB, Nebs and corticosteroids Problem Qualifiers (1) Respiratory failure: Qualified Codes: J96.00 - Acute respiratory failure, unspecified whether with hypoxia or hypercapnia (2) Bilateral pneumonia: Qualified Codes: J18.9 - Pneumonia, unspecified organism TARIQ OCHOA III DO Dec 03, 2024 19:36
[2024-12-04] VITALS (17 sets, daily range): BP systolic 129–175; BP diastolic 56–105; PULSE 76–102; RESP 10–26; TEMP 97.6–98.5; O2SAT 74–98
[2024-12-04 07:40] LABS: MEAN PLATELET VOLUME 11.7 FL (7.4-10.4); RED CELL DISTRIBUTION WIDTH 14.9 % (11.5-14.5)
[2024-12-04 08:06] LABS: CREATININE 1.98 MG/DL (0.60-1.10); TOTAL CARBON DIOXIDE 25.6 MMOL/L (24-32); eCRCL 45 ML/MIN; eGFR 37 ML/MIN
[2024-12-04 10:15] LABS: LARGE PLATELETS FEW; PLATELET ESTIMATE NORMAL
--- NOTE | 2024-12-04 11:39 | PROGRESS NOTE ---
Daily Progress Note Providers to CC ~ Antibiotic Timeout Antibiotic Ordered?: Yes Subjective Patient reports feeling better Objective Vital Signs Date Time Temp Pulse Resp B/P (MAP) Pulse Ox O2 Delivery O2 Flow Rate FiO2 12/04/24 07:25 95 12/04/24 02:00 97.6 20 161/95 (117) 98 Nasal Cannula 2.0 12/03/24 17:44 28 Result Diagram: 12/04/24 0655 12/04/24 0655 Patient is alert and oriented x4 in no acute distress lying down comfortably speaking in full sentences off O2 HEENT normocephalic nontraumatic, EOMI HEART: RRR. No murmur gallop or rub , sinus tachycardia CHEST : Occasional expiratory rhonchi and basilar crackles audible. Abdomen is soft bowel sounds are positive it is nontender nondistended Extremities no clubbing cyanosis Or edema Neurological exam no focal deficits SKIN: Right flank bruise Catheter noted Coagulation Studies Laboratory Tests Test 12/01/24 12:55 APTT (Heparin Protocol) 42 SECONDS (45-60) L Coagulation Comments Other Results Medications reviewed Problem\Assessment\Plan - Community acquired biateral pneumonia likely atyptical . Continue IV Rocephin and azithromycin. Repeat chest x-ray and CT chest reviewed. -hyponatremia: Likely due to diuretics. Continue monitor -history of tobacco use: Nicotine patch as necessary -Hypertensive emergency : Increase Norvasc to 10 mg p.o. daily. Labetalol PRN - Probable COPD Continue Solu-Medrol and inhaled bronchodilators. Switch to Xopenex, Taper steroids -Acute respiratory failure secondary to above Continue supplemental oxygen. Patient will be evaluated for home O2 , -Hematoma over right lower quadrant Continue monitor, heparin has been discontinued -Actue exacerbation of HFpEF Check echocardiogram preliminary EF is 50-55% Daily weights , DC fluid restriction. Continue monitor I's and O's. -Type 2 ND due to demand ischemia IV heparin was discontinued. -KELSEY/ CKD Creatinine trending down. Nephrology consultation was requested and patient is now being followed by Dr. Villagomez, Continue monitor radha VALENZUELA - Hypokalemia Replace per protocol HFpEF : Lasix has been discontinued , continue monitor . Requested cardiology consultation . Texted Zuleyma Robb T2MI due to demand ischemia : Patient does not have any complaints of chest pain. Code status: Full code. Date of Service: Dec 04, 2024 Billing Provider: ALIA ZEPEDA MD Common Visit Codes: [id number] INP/OBS CARE(HIGH) ALIA ZEPEDA MD Dec 04, 2024 11:38
[2024-12-04] MEDS: labetalol 20mg/4ml (5mg/ml) syringe IV ONE (13:16)
[2024-12-04] MEDS: levalbuterol 0.63mg/3ml nebule IH SCH (15:39)
--- NOTE | 2024-12-04 17:13 | CONSULTATION REPORT ---
History of Present Illness Providers to CC CC: MINA NAVARRO MD ~ Reason for Admit\Admit Dx: Cardiology consultation History of Present Illness Patient with no known past medical history presented through the emergency department at [facility] secondary to shortness for breath. Patient stated he had cold-like symptoms for about a week prior to arrival and then noted increased difficulty breathing. It was found to have systolic blood pressure in the 230s and was transferred for further evaluation and management. This was back on November 29, 2024. Cardiology consultation was requested today to evaluate whether patient has CHF or not. Patient states he has continued shortness for breath/dyspnea on exertion with walking short distances such as to the restroom. He is on supplemental oxygen. Blood pressure remains elevated on amlodipine, carvedilol 3.125 mg b.i.d. and prn clonidine and p.r.n. hydralazine IV. His kidney function is abnormal and nephrology is following. Being treated for a COPD exacerbation as well as pneumonia. Initially had elevated troponins. Did have 48 hours of heparin. Now off heparin. No chest pain or pressure. His echocardiogram demonstrated preserved LVEF. CTA of the chest demonstrated emphysematous changes as well as pulmonary vascular congestion with small pleural effusions. Allergies: Coded Allergies: No Known Allergies (Unverified , 11/29/24) Home Medications Home Medications Active Reported No Home Medications (Home Med List) Each Past Medical History Medical History Comment No known past medical history Past Family History Family History Comment Patient states his mother had hypertension. from a bowel infection. Father recently . Believes he had seizures. Family History: Patient reports no known family medical history. Past Social History Social History Comment Current everyday smoker. Occasional alcohol. Denies drug use. Physical Exam Last Vital Signs Recorded: RN Vital Signs have been reviewed: Yes, Temperature: 98.5, Source: Oral, Heart Rate: 94, Respiratory Rate: 20, BP: 145/91, Pulse Oximetry: 98, Weight: 65.800 Physical Exam General: Awake, alert, oriented. No apparent distress Neck: Supple. Normal range of motion. No JVD Respiratory: Lungs are clear to auscultation bilaterally. No respiratory distress. Chest: Normal shape and size. No accessory muscle use. Cardiovascular: Regular rate and rhythm. S1-S2. No murmur, gallop, rub. Gastrointestinal: Abdomen is soft. Nontender to palpation. Bowel sounds present. Extremities: No lower extremity edema. + clubbing noted to the fingertips Neurologic: Alert and oriented x4. Nonfocal Psychiatric: Normal mood and affect. Skin: Normal color. Warm and dry. Respiratory: lungs clear, normal breath sounds Chest: no accessory muscle use Cardiovascular: regular rate, rhythm, no edema Gastrointestinal: normal palpation, non-tender Neurologic: oriented x4 Skin: normal color, warm/dry Review of Systems ROS Patient complains of shortness for breath/dyspnea on exertion. No chest pain or pressure. Review of systems negative except otherwise documented in HPI. Results EKG EKG Sinus rhythm with LVH Echocardiogram Echocardiogram Conclusion Normal LV size and wall thickness. Overall systolic function is normal. Overall LVEF is 55-60%. RV is normal size and function. Estimated PA systolic pressure is 44 mmHg. Left atrium is moderately dilated. Trileaflet AV appears sclerotic without stenosis or insufficiency. Mild MV annular calcification without stenosis. Mild regurgitation. TV appears structurally normal with mild regurgitation. Normal PV without stenosis, physiologic insufficiency. Normal pericardium. No pericardial effusion seen. Dictated by:JUVE WRIGHT MD Dictation date and time:11/30/24 7657 Other Other Procedure: CT CT CHEST Reason for study/Clinical History: infiltrate Comparison Study: None TECHNIQUE: Multidetector CT of the chest was performed from the lung apices to the upper abdomen without the use of intravenous contract. Axial, coronal and sagittal multiplanar reformats were performed. Radiation Dose Information: CT Dose: CTDI volume is 10.3 mGy. Dose-length product is 409.2 mGy*cm The dose indicators for CT are the volume Computed Tomography (CT) Dose Index (CTDIvol) and the Dose Length Product (DLP), and are measured in units of mGy and mGy-cm, respectively. These indicators are not patient dose, but values generated from the CT scanner acquisition factors. The report includes radiation exposure data for exposures received during this examination. FINDINGS: Lower neck: Unremarkable. Lungs: Moderate centrilobular emphysema. Patchy bilateral lower lobe airspace opacities. Diffuse interlobular septal thickening most prominent at the lung bases. Heart/Vascular Structures: Mild 3-vessel coronary artery disease. Cardiomegaly. Coronary artery calcifications. Vascular calcifications of the aorta. Lymph Nodes: No adenopathy Pleura: Small bilateral pleural effusions. Musculoskeletal: No acute osseous abnormality. Soft tissues: Normal. Upper abdomen: Limited portions of the upper abdomen are unremarkable. IMPRESSION: Findings are suspicious for cHF/fluid overload with possible superimposed airspace disease in the lung bases. Electronically Signed by:VÍCTOR HERNANDES MD Date & Time: 12/02/24 1436 Diagram Lab Result Diagram: 12/04/24 0655 12/04/24 0655 Assessment/Plan Additional Plan Patient presented with shortness for breath/hypertensive emergency. Cardiology consultation was requested to evaluate for CHF. Shortness for breath with question of CHF NT proBNP elevated Minimally elevated troponins --likely secondary to hypertension Hypertensive heart disease without heart failure Hypertensive emergency Blood pressure now about 150/90 to 100 TTE with LVEF 55-60 %. mild lvh ivsd 1.21 pwd 1.34 --on amlodipine 10 mg daily --receiving prn meds for hydralazine and clonidine --recommend up titration of antihypertensive therapy. We will need outpatient follow up. Likely acute kidney injury with chronic kidney disease --continue follow up with Nephrology COPD Emphysema Community-acquired pneumonia --hospitalist managing Discussed with Dr. Luc Navarro. Given his age recommend outpatient follow up for possible infiltrative cardiomyopathy given mild LVH. He will need outpatient referral to anaesthesiologist. He was educated that his primary care provider may send referral to the [facility] with Dr. khurram navarro. Supervising MD Supervising Physician: LILY Deleon NP Dec 04, 2024 17:13
--- NOTE | 2024-12-04 21:41 | PROGRESS NOTE ---
Progress Note ID Providers to CC ~ Progress Note Progress Note: Antibiotic Days Rocephin 5, Azithro 5 Lines: PIV Micro: none Subjective: Patient was on an extreme dose of steroids today which was discussed with the primary team Objective: Vitals: Afebrile, 102, 20, 150/68, 95% on 2L General: Alert, NAD CV: Regular Resp: Improved breath soudns Abd: Soft, nontender, nondistended Ext: No rash Lines: PIV ok Laboratory Tests 12/04/24 06:55 Assessment: // CAP - patient describes a prodromal "cold" that may have been the inciting incident for his fluid overload/HTN emergency that looks to be the more likely eitiology of his respiratory failure // Fluid overload // HTN emergency // KELSEY // Antibiotic Allergies: none known Plan: - Finish antibiotics - Follow up coxsackie serologies IVONNE MONTIEL DO Dec 04, 2024 21:41
--- NOTE | 2024-12-04 23:45 | PROGRESS NOTE ---
Progress Note Dictate Providers to CC ~ Antibiotic Ordered?: N/A Subjective Subjective He has no specific complaints today, more alert, nurses report no new events since last evaluation Objective Vitals Vital Signs Date Time Temp Pulse Resp B/P (MAP) Pulse Ox O2 Delivery O2 Flow Rate FiO2 12/04/24 22:19 97 12/04/24 22:05 175/97 (123) 12/04/24 20:00 22 95 Nasal Cannula 2.0 12/04/24 19:51 28 12/04/24 18:00 97.6 RRR w/o murmur CTAB, no wheezes +BS, NT No edema Lab Results: 12/04/24 0655 12/04/24 0655 Coagulation Studies Laboratory Tests Test 12/01/24 12:55 APTT (Heparin Protocol) 42 SECONDS (45-60) L Coagulation Comments Other Results I & O 12/04/24 07:00 Intake Total 1840 ml Output Total 1350 ml Balance 490 ml Intake Oral 1840 ml Output Urine Total 1350 ml Problem\Assessment\Plan Problems/Diagnosis: (1) Acute kidney injury superimposed on CKD Assessment & Plan: Most consistent with pre-renal physiology, not convinced this is cardiac, likely poor intake with his illness, with naturesis from hypertensive emergency causing volume depletion, I will try to find out what his baseline renal function is, SASHA no hydronephrosis or obstruction normal kidney, improving everyday creatinine 1.9 today (2) Respiratory failure Assessment & Plan: Continue Nebs, O2, pneumonia treatment, supportive care (3) Bilateral pneumonia Assessment & Plan: Continue IV AB, Nebs and corticosteroids, improving daily Problem Qualifiers (1) Respiratory failure: Qualified Codes: J96.00 - Acute respiratory failure, unspecified whether with hypoxia or hypercapnia (2) Bilateral pneumonia: Qualified Codes: J18.9 - Pneumonia, unspecified organism TARIQ OCHOA III DO Dec 04, 2024 23:45
[2024-12-05] VITALS (18 sets, daily range): BP systolic 136–203; BP diastolic 80–114; PULSE 81–117; RESP 13–22; TEMP 97.1–97.6; O2SAT 92–98
[2024-12-05 06:23] LABS: ANTISTREPTOLYSIN O AB 89.9 IU/mL (0.0-200.0); COMPLEMENT C3, SERUM 112 mg/dL (82-167); COMPLEMENT C4, SERUM 23 mg/dL (12-38); IMMUNOGLOBULIN G, QN, SERUM 782 mg/dL (603-1613); IMMUNOGLOBULIN M, QN, SERUM 63 mg/dL (20-172)
--- NOTE | 2024-12-05 08:03 | RADIOLOGY REPORT ---
CHEST RADIOGRAPH Indication: FOLLOW UP Technique: Single frontal view of the chest was obtained Comparison: CT CT CHEST on DOS: 12/02/24, DI CHEST,SINGLE VIEW on DOS: 12/02/24, DI CHEST,SINGLE VIEW on DOS: 11/29/24, DI CHEST,SINGLE VIEW on DOS: 12/02/24 FINDINGS: Lines and Tubes: None Lungs: Increased interstitial prominence since the prior study. Pleura: Stable bilateral pleural effusions. No pneumothorax. Cardiomediastinal contours: Stable. Bones: No acute osseous abnormality. IMPRESSION: 1. Worsening pulmonary vascular congestion. 2. Small bilateral pleural effusions not significantly changed.
[2024-12-05] MEDS: albumin (human) 25% 100ml IV 100 ML IV SCH (12:13)
[2024-12-05 15:10] LABS: ANTINUCLEAR ANTIBODIES Negative (Negative)
[2024-12-05 15:32] LABS: MEAN PLATELET VOLUME 11.2 FL (7.4-10.4); RED CELL DISTRIBUTION WIDTH 14.9 % (11.5-14.5)
[2024-12-05 15:49] LABS: LARGE PLATELETS FEW; PLATELET ESTIMATE NORMAL
[2024-12-05 15:54] LABS: CREATININE 2.35 MG/DL (0.60-1.10); TOTAL CARBON DIOXIDE 27.3 MMOL/L (24-32); eCRCL 38 ML/MIN; eGFR 30 ML/MIN
--- NOTE | 2024-12-05 16:18 | PROGRESS NOTE ---
Progress Note Dictate Providers to CC ~ Central Line/PICC still needed: No Benitez Indications Met/Not Met: F/C Indications Not Met Antibiotic Ordered?: N/A Subjective Subjective somewhat irritable. short of breath but says he does not like fluid restriction. CXR done today shows pulmonary edema. start lasix and zaroxolyn for aggressive diuresis. Objective Vitals Vital Signs Date Time Temp Pulse Resp B/P (MAP) Pulse Ox O2 Delivery O2 Flow Rate FiO2 12/05/24 21:12 117 18 Nasal Cannula 2.0 12/05/24 21:06 93 28 12/05/24 15:00 97.4 136/80 (98) Lab Results: 12/05/24 1514 12/05/24 1514 Objective Vital Signs: As above General: Normal body habitus, no acute distress. Skin: No rashes, lumps, ulcers, blisters, purpura or petechiae HEENT: Anicteric sclera, TIN Neck: Supple and nontender without enlargement of the thyroid, or lymphadenopathy. Chest: Normal size and shape, no tenderness, CTA bilaterally Heart: Regular. No jugular venous distention, S1 and S2 heard , no gallop Abdomen: Soft and non tender no organomegaly,BS+ Extremities: No pedal edema Neuro: Nonfocal. Coagulation Studies Laboratory Tests Test 12/01/24 12:55 APTT (Heparin Protocol) 42 SECONDS (45-60) L Coagulation Comments Advance Care Planning Advanced Care plannin - 30 Minutes Problem\Assessment\Plan Problems/Diagnosis: (1) Acute kidney injury superimposed on CKD Assessment & Plan: will diuresie aggressively for the acute pulmonary edema, and leg edema. He has a tendency to drink plenty of water but I have to restrict it to 1.2 liters per dya. (2) Respiratory failure (3) Bilateral pneumonia Problem Qualifiers (1) Respiratory failure: Qualified Codes: J96.00 - Acute respiratory failure, unspecified whether with hypoxia or hypercapnia (2) Bilateral pneumonia: Qualified Codes: J18.9 - Pneumonia, unspecified organism FRANCISCO JAVIER KEYS MD Dec 05, 2024 16:18
--- NOTE | 2024-12-05 18:29 | PROGRESS NOTE ---
Daily Progress Note Providers to CC ~ Antibiotic Timeout Antibiotic Ordered?: Yes Subjective Continues to have shortness of breath. Objective Vital Signs Date Time Temp Pulse Resp B/P (MAP) Pulse Ox O2 Delivery O2 Flow Rate FiO2 12/05/24 15:32 95 18 Nasal Cannula 2.0 12/05/24 15:24 94 28 12/05/24 15:00 97.4 136/80 (98) Result Diagram: 12/05/24 1514 12/05/24 1514 Patient is alert and oriented x4 in no acute distress lying down comfortably speaking in full sentences off O2 HEENT normocephalic nontraumatic, EOMI HEART: RRR. No murmur gallop or rub , sinus tachycardia CHEST : Occasional expiratory rhonchi and basilar crackles audible. Abdomen is soft bowel sounds are positive it is nontender nondistended Extremities no clubbing cyanosis Or edema Neurological exam no focal deficits SKIN: Right flank bruise Catheter noted Coagulation Studies Laboratory Tests Test 12/01/24 12:55 APTT (Heparin Protocol) 42 SECONDS (45-60) L Coagulation Comments Other Results Medications reviewed Chest XR personally reviewed Problem\Assessment\Plan - Community acquired biateral pneumonia likely atyptical . Continue IV Rocephin and azithromycin. Repeat chest x-ray and CT chest reviewed. -hyponatremia: Likely due to diuretics. Continue monitor -KELSEY /CKD -Continue monitor Cr. Followed by nephrology -Hypoalbuminemia and Hypoproteinemia ; Will give albumin , -history of tobacco use: Nicotine patch as necessary -Hypertensive emergency : Labetelol PRN, Will DC Coreg and start on PO metoprolol - Probable COPD Continue Solu-Medrol and inhaled bronchodilators. Switch to Xopenex, Taper steroids -Acute respiratory failure secondary to above Continue supplemental oxygen. Patient will be evaluated for home O2 , -Hematoma over right lower quadrant Continue monitor, heparin has been discontinued -Actue exacerbation of HFpEF Check echocardiogram preliminary EF is 50-55% Daily weights , DC fluid restriction. Continue monitor I's and O's. -Type 2 CT due to demand ischemia IV heparin was discontinued. -KELSEY/ CKD Creatinine trending down. Nephrology consultation was requested and patient is now being followed by Dr. Villagomez, Continue monitor garcia BMP - Hypokalemia Replace per protocol HFpEF : Lasix has been discontinued , Monitor I and O's , cardiology consulted. T2MI due to demand ischemia : Patient does not have any complaints of chest pain. Leukocytosis -Due to steroids Code status: Full code. Critical care time spent in excess of 35 min . Date of Service: Dec 05, 2024 Billing Provider: ALIA ZEPEDA MD Common Visit Codes: 98029-[id number] CARE 30-74 MIN ALIA ZEPEDA MD Dec 05, 2024 18:29
[2024-12-05 19:08] LABS: HBSAG SCREEN Negative (Negative)
[2024-12-05] MEDS: hydrALAZINE 20mg/ml inj. IV PRN (22:17)
[2024-12-05] MEDS: furosemide 10 MG/1 ML 10ml inj IV ONE (23:16)
[2024-12-05] MEDS: labetalol 20mg/4ml (5mg/ml) syringe IV ONE (23:44)
--- NOTE | 2024-12-05 23:52 | RADIOLOGY REPORT ---
CHEST RADIOGRAPH Indication: SOB Technique: Single frontal view of the chest was obtained COMPARISON: DI CHEST,SINGLE VIEW on DOS: 12/05/24, CT CT CHEST on DOS: 12/02/24, DI CHEST,SINGLE VIEW on DOS: 12/02/24, DI CHEST,SINGLE VIEW on DOS: 11/29/24 FINDINGS: Lines and Tubes: None Lungs: Increased layering of moderate bilateral pleural effusions with dependent atelectasis. Mildly increased interstitial lung opacities, suggestive of cr increased d pulmonary edema. Pleura: No pneumothorax. Cardiomediastinal contours: Unchanged Bones: Unremarkable IMPRESSION: 1. Increased layering of moderate bilateral pleural effusions and increased interstitial lung opaciti es. 2. Findings are suggestive of increased pulmonary edema
[2024-12-06] VITALS (15 sets, daily range): BP systolic 148–178; BP diastolic 79–95; PULSE 88–96; RESP 15–22; TEMP 97.5–98; O2SAT 93–100
[2024-12-06 00:26] LABS: ABG BASE EXCESS -0.5 mmol/L (-2.0-3.0); ABG HCO3 24.3 mmol/L (21.0-28.0); ABG OXYGEN SATURATION 91.2 % (94.0-98.0); ABG PCO2 (T) 39.8 mmHg (35.0-48.0); ABG PH (T) 7.402 (7.350-7.450); ABG PO2 (T) 62.5 mmHg (83.0-108.0); ALLEN'S TEST Modified; FCOHb 0.3 % (0.5-1.5); FHHb 8.8 % (0.0-5.0); FIO2 36.0 mmHg/%; FLOW 4 L/min; FMetHb 0.1 % (0.0-1.5); FO2Hb 90.8 % (94.0-98.0); MODE NASAL CANNULA; PATIENT TEMPERATURE 36.6; TOTAL HEMOGLOBIN 11.7 G/dl (13.5-17.5)
[2024-12-06 06:43] LABS: MEAN PLATELET VOLUME 10.9 FL (7.4-10.4); RED CELL DISTRIBUTION WIDTH 14.9 % (11.5-14.5)
[2024-12-06 08:02] LABS: CREATININE 2.07 MG/DL (0.60-1.10); TOTAL CARBON DIOXIDE 30.8 MMOL/L (24-32); eCRCL 43 ML/MIN; eGFR 35 ML/MIN
--- NOTE | 2024-12-06 08:17 | ELECTROCARDIOGRAPH REPORT ---
[facility] Test Date: 2024-12-06 Test Time: 08:13:34 Pat Name: ANUJ ROBBINS Department: [facility] 3S Patient ID: [id number] Room: [place] [address] B Gender: M Network Admin: : 1980 Requested By: ALIA ZEPEDA Order Number: [id number] Reading MD: Dr. KINSEY Salomon Measurements Intervals [place] Rate: 89 P: 69 AK: 139 QRS: 61 QRSD: 109 T: 255 QT: 353 QTc: 430 Interpretive Statements Sinus rhythm BALJIT, consider biatrial enlargement LVH with secondary repolarization abnormality ST depression, consider ischemia, diffuse lds Electronically Signed On 12-06-2024 9:56:[address] KINSEY Salomon Please click the below link to view image of tracing.
[2024-12-06 09:11] LABS: ATYPICAL PANCA <1:20 titer (Neg:<1:20); CYTOPLASMIC (C-ANCA) <1:20 titer (Neg:<1:20); PERINUCLEAR (P-ANCA) <1:20 titer (Neg:<1:20)
[2024-12-06] MEDS ORDERED: magnesium sulf-water 2g/50mL 50 ML IV PRN (09:45)
[2024-12-06] MEDS ORDERED: magnesium sulf-water 4G/100mL 100 ML IV PRN (09:45)
[2024-12-06] MEDS ORDERED: magnesium Cl slow-release 64mg tablet PO PRN (09:45)
[2024-12-06] MEDS: potassium Cl 40MEQ/1/2NS 520ml 520 ML IV PRN (12:21)
[2024-12-06] MEDS ORDERED: albumin (human) 25% 100ml IV 100 ML IV SCH (14:00)
--- NOTE | 2024-12-06 16:59 | PROGRESS NOTE ---
Progress Note Dictate Providers to CC ~ Central Line/PICC still needed: No Benitez Indications Met/Not Met: F/C Indications Met Antibiotic Ordered?: N/A Subjective Subjective sleeping during rounds. excellent diuresis. ootassium being chased with the diuresis. Objective Vitals Vital Signs Date Time Temp Pulse Resp B/P (MAP) Pulse Ox O2 Delivery O2 Flow Rate FiO2 12/06/24 15:27 92 16 Nasal Cannula 3.0 12/06/24 15:19 93 32 12/06/24 15:15 98.0 155/79 (104) Lab Results: 12/06/24 0611 12/06/24 0611 Objective Vital Signs: As above General: Normal body habitus, no acute distress. Skin: No rashes, lumps, ulcers, blisters, purpura or petechiae HEENT: Anicteric sclera, TIN Neck: Supple and nontender without enlargement of the thyroid, or lymphadenopathy. Chest: Normal size and shape, no tenderness, CTA bilaterally Heart: Regular. No jugular venous distention, S1 and S2 heard , no gallop Abdomen: Soft and non tender no organomegaly,BS+ Extremities: No pedal edema Neuro: Nonfocal. Coagulation Studies Laboratory Tests Test 12/01/24 12:55 APTT (Heparin Protocol) 42 SECONDS (45-60) L Coagulation Comments Advance Care Planning Advanced Care plannin - 30 Minutes Problem\Assessment\Plan Problems/Diagnosis: (1) Acute kidney injury superimposed on CKD Assessment & Plan: will diuresie aggressively for the acute pulmonary edema, and leg edema. He has a tendency to drink plenty of water but I have to restrict it to 1.2 liters per dya. (2) Respiratory failure Assessment & Plan: much better. (3) Bilateral pneumonia Assessment & Plan: recperating. Problem Qualifiers (1) Respiratory failure: Qualified Codes: J96.00 - Acute respiratory failure, unspecified whether with hypoxia or hypercapnia (2) Bilateral pneumonia: Qualified Codes: J18.9 - Pneumonia, unspecified organism FRANCISCO JAVIER KEYS MD Dec 06, 2024 16:59
--- NOTE | 2024-12-06 17:16 | PROGRESS NOTE ---
Daily Progress Note Providers to CC ~ Antibiotic Timeout Antibiotic Ordered?: Yes Subjective Patient reports improved breathing. Patient states he will stay here as long as he needs to to get better. Objective Vital Signs Date Time Temp Pulse Resp B/P (MAP) Pulse Ox O2 Delivery O2 Flow Rate FiO2 12/06/24 15:27 92 16 Nasal Cannula 3.0 12/06/24 15:19 93 32 12/06/24 15:15 98.0 155/79 (104) Result Diagram: 12/06/24 0611 12/06/24 0611 Patient is alert and oriented x4 in no acute distress lying down comfortably speaking in full sentences off O2 HEENT normocephalic nontraumatic, EOMI HEART: RRR. No murmur gallop or rub , sinus tachycardia CHEST : Occasional expiratory rhonchi and basilar crackles audible. Abdomen is soft bowel sounds are positive it is nontender nondistended Extremities no clubbing cyanosis Or edema Neurological exam no focal deficits SKIN: Right flank bruise Catheter noted Coagulation Studies Laboratory Tests Test 12/01/24 12:55 APTT (Heparin Protocol) 42 SECONDS (45-60) L Coagulation Comments Other Results Medications reviewed Problem\Assessment\Plan - probable Community acquired biateral pneumonia likely atyptical . Continue IV Rocephin and azithromycin. -hyponatremia: Resolved. -KELSEY /CKD -Continue monitor Cr. Followed by nephrology. Creatinine trending down. -Hypoalbuminemia and Hypoproteinemia ; patient presented with a albumin of 2.1. Given albumin. -history of tobacco use: Nicotine patch as necessary -Hypertensive emergency : Labetelol PRN, continue metoprolol - Probable COPD Continue Solu-Medrol and inhaled bronchodilators. Switch to Xopenex, Taper steroids -Acute respiratory failure secondary to above Continue supplemental oxygen. Patient will be evaluated for home O2 , -Hematoma over right lower quadrant Continue monitor, heparin has been discontinued -Actue exacerbation of HFpEF Check echocardiogram preliminary EF is 50-55% Daily weights , DC fluid restriction. Continue monitor I's and O's. -Type 2 MN due to demand ischemia IV heparin was discontinued. - Hypokalemia Replace per protocol HFpEF : Lasix has been discontinued , Monitor I and O's , cardiology consulted. Please refer to the consultation note for further information. T2MI due to demand ischemia : Patient does not have any complaints of chest pain. Leukocytosis -Due to steroids Code status: Full code. Date of Service: Dec 06, 2024 Billing Provider: ALIA ZEPEDA MD Common Visit Codes: [id number] INP/OBS CARE(HIGH) ALIA ZEPEDA MD Dec 06, 2024 17:16
[2024-12-06 19:56] LABS: CREATININE 2.28 MG/DL (0.60-1.10); TOTAL CARBON DIOXIDE 33.8 MMOL/L (24-32); eCRCL 39 ML/MIN; eGFR 32 ML/MIN
[2024-12-06] MEDS: K and/or MAG REPLACEMENT MC SCH (20:00)
[2024-12-06] MEDS: potassium Cl 20 mEq SR tablet PO ONE (20:33)
[2024-12-07] VITALS (16 sets, daily range): BP systolic 139–170; BP diastolic 78–93; PULSE 84–101; RESP 12–20; TEMP 97.3–98.4; O2SAT 94–100
[2024-12-07] MEDS: potassium Cl 20 mEq SR tablet PO PRN ×2 (00:46→09:03)
[2024-12-07 07:20] LABS: MEAN PLATELET VOLUME 10.8 FL (7.4-10.4); RED CELL DISTRIBUTION WIDTH 14.8 % (11.5-14.5)
[2024-12-07 07:50] LABS: CREATININE 1.76 MG/DL (0.60-1.10); TOTAL CARBON DIOXIDE 33.2 MMOL/L (24-32); eCRCL 51 ML/MIN; eGFR 42 ML/MIN
--- NOTE | 2024-12-07 09:06 | PROGRESS NOTE ---
Progress Note Dictate Providers to CC ~ Central Line/PICC still needed: No Benitez Indications Met/Not Met: F/C Indications Met Antibiotic Ordered?: N/A Subjective Subjective The patient continues to have excellent negative balance with excellent diuresis. I have held his metolazone. Lasix has already been held by . will follow up the CXr today. He did have pulmonary edema on 12/05 CXR. But now he is on room air. creatinine is down to 1.7. Objective Vitals Vital Signs Date Time Temp Pulse Resp B/P (MAP) Pulse Ox O2 Delivery O2 Flow Rate FiO2 12/07/24 08:42 96 16 Room Air 0.0 12/07/24 08:37 94 21 12/07/24 02:00 97.7 170/89 (116) Lab Results: 12/07/24 0641 12/07/24 0641 Objective Vital Signs: As above General: Normal body habitus, no acute distress. Skin: No rashes, lumps, ulcers, blisters, purpura or petechiae HEENT: Anicteric sclera, TIN Neck: Supple and nontender without enlargement of the thyroid, or lymphadenopathy. Chest: Normal size and shape, no tenderness, CTA bilaterally Heart: Regular. No jugular venous distention, S1 and S2 heard , no gallop Abdomen: Soft and non tender no organomegaly,BS+ Extremities: No pedal edema Neuro: Nonfocal. Coagulation Studies Laboratory Tests Test 12/01/24 12:55 APTT (Heparin Protocol) 42 SECONDS (45-60) L Coagulation Comments Advance Care Planning Advanced Care plannin - 30 Minutes Problem\Assessment\Plan Problems/Diagnosis: (1) Acute kidney injury superimposed on CKD Assessment & Plan: diuresed aggressively for the acute pulmonary edema, and leg edema. He has a tendency to drink plenty of water but I have to restrict it to 1.2 liters per day. He is now alkalotic from the diuresis. held the loop diuretic and the distal acting agent. follow up CXR (2) Respiratory failure Assessment & Plan: much better. on Room air now. (3) Bilateral pneumonia Assessment & Plan: recperating. Problem Qualifiers (1) Respiratory failure: Qualified Codes: J96.00 - Acute respiratory failure, unspecified whether with hypoxia or hypercapnia (2) Bilateral pneumonia: Qualified Codes: J18.9 - Pneumonia, unspecified organism FRANCISCO JAVIER KEYS MD Dec 07, 2024 09:06
--- NOTE | 2024-12-07 09:56 | RADIOLOGY REPORT ---
CHEST RADIOGRAPH Indication: follow up pulmonary edema Technique: Single frontal view of the chest was obtained Comparison: DI CHEST,SINGLE VIEW on DOS: 12/05/24, DI CHEST,SINGLE VIEW on DOS: 12/05/24, DI CHEST,SINGLE VIEW on DOS: 12/02/24, DI CHEST,SINGLE VIEW on DOS: 11/29/24 FINDINGS: Lines and Tubes: None Lungs: No focal consolidation. Mild pulmonary edema, mildly improved. Pleura: Mild bibasilar pleural effusions, minimally improved. No pneumothorax. Cardiomediastinal contours: Unremarkable Bones: No acute osseous abnormality. IMPRESSION: Mild pulmonary edema, mildly improved. Mild bibasilar pleural effusions, minimally improved.
--- NOTE | 2024-12-07 14:24 | PROGRESS NOTE ---
Daily Progress Note Providers to CC ~ Antibiotic Timeout Antibiotic Ordered?: Yes Subjective Patient reports feeling better. Saturating at 100% on room air. Objective Vital Signs Date Time Temp Pulse Resp B/P (MAP) Pulse Ox O2 Delivery O2 Flow Rate FiO2 12/07/24 10:00 98.1 90 20 168/89 (115) 100 Room Air 12/07/24 08:42 0.0 12/07/24 08:37 21 Result Diagram: 12/07/24 0641 12/07/24 0641 Patient is alert and oriented x4 in no acute distress lying down comfortably speaking in full sentences off O2 HEENT normocephalic nontraumatic, EOMI HEART: RRR. No murmur gallop or rub , sinus tachycardia CHEST : Clear to auscultation anteriorly, no wheezes crackles rhonchi Abdomen is soft bowel sounds are positive it is nontender nondistended Extremities no clubbing cyanosis Or edema Neurological exam no focal deficits SKIN: Right flank bruise Coagulation Studies Laboratory Tests Test 12/01/24 12:55 APTT (Heparin Protocol) 42 SECONDS (45-60) L Coagulation Comments Other Results Medications reviewed Problem\Assessment\Plan - Probable Community acquired biateral pneumonia likely atyptical . Continue IV Rocephin and azithromycin. -Hyponatremia: Resolved. -KELSEY /CKD -Continue monitor Cr. Followed by nephrology. Creatinine trending down. -Hypoalbuminemia and Hypoproteinemia ; patient presented with a albumin of 2.1. Given albumin. -history of tobacco use: Counselled -Hypertensive emergency : Labetelol PRN, continue metoprolol , losartan - Probable COPD Continue Solu-Medrol and inhaled bronchodilators. Xopenex, switch to PO Prednisone -Acute respiratory failure secondary to above: Resolved. -Hematoma over right lower quadrant Continue monitor, heparin has been discontinued -Actue exacerbation of HFpEF Discussed wit Dr. May, will continue with low dose lasix Daily weights , fluid restriction has been discontinued. Continue monitor I's and O's. -Type 2 NC due to demand ischemia IV heparin was discontinued. - Hypokalemia Replace per protocol T2MI due to demand ischemia : Patient does not have any complaints of chest pain. Leukocytosis -Due to steroids Code status: Full code. Disposition Likely home in am if Cr continues to trend down and LFT's improving . Date of Service: Dec 07, 2024 Billing Provider: ALIA ZEPEDA MD Common Visit Codes: [id number] INP/OBS CARE(HIGH) ALIA ZEPEDA MD Dec 07, 2024 14:24
[2024-12-07 14:59] LABS: PRO BRAIN NATRIURETIC PEPTIDE > 30000 PG/ML (0-125)
[2024-12-08] VITALS (7 sets, daily range): BP systolic 148–180; BP diastolic 77–105; PULSE 80–85; RESP 12–17; TEMP 97.2–98.1; O2SAT 96–99
[2024-12-08 06:33] LABS: MEAN PLATELET VOLUME 10.4 FL (7.4-10.4); RED CELL DISTRIBUTION WIDTH 14.9 % (11.5-14.5)
[2024-12-08] MEDS: methylPREDNISolone sod succ/PF 40mg inj. IV SCH (07:34)
[2024-12-08 07:39] LABS: CREATININE 1.77 MG/DL (0.60-1.10); TOTAL CARBON DIOXIDE 32.4 MMOL/L (24-32); eCRCL 47 ML/MIN; eGFR 42 ML/MIN
[2024-12-08] MEDS ORDERED: LOP25T PO (11:59)
[2024-12-08] MEDS ORDERED: FURO20TA4 PO (11:59)
[2024-12-08] MEDS ORDERED: AMLO10TA PO (11:59)
[2024-12-08] MEDS ORDERED: LOSA25TA41 PO (11:59)
[2024-12-08] MEDS ORDERED: POTA-207 PO (12:01)
[2024-12-08] MEDS ORDERED: ASPI-1265 PO (12:01)
--- NOTE | 2024-12-08 21:27 | DISCHARGE SUMMARY ---
Discharge Summary Providers to CC ~ Discharge Summary Admission Diagnosis: PNEUMONIA, CHF Hospital Course DATE OF ADMISSION: 11/29/2024 DATE OF DISCHARGE: 12/08/2024 Discharge Diagnosis\\Comment: Community Acquired pneumonia, hyponatremia, KELSEY on chronic kidney disease, hypertensive emergency, COPD with acute respiratory failure, hematoma of the right lower extremity,type 2 mi, hypokalemia. Operations\\Procedures: None Consultants: Formulation Technician Dr. Joellen Mehta, regional office coordinator Dr. Villagomez and regional office coordinator Dr. Uriarte, Dr Bella Ramos DO Infectious Disease Complications: None Condition on DC: Stable New Medications: Aspirin (Aspirin) 81 Mg Tab.chew 1 TAB PO DAILY for 30 Days, #30 TAB 2 Refills Potassium Chloride* (K-Dur*) 20 Meq Tab.prt.sr 2 TAB PO DAILY, #60 TAB Amlodipine Besylate (Amlodipine Besylate) 10 Mg Tablet 1 TABLET PO DAILY, #30 TABLET 3 Refills Furosemide (Furosemide) 20 Mg Tablet 20 MG PO DAILY, #30 TAB Losartan Potassium (Losartan Potassium) 25 Mg Tablet 25 MG PO DAILY, #30 TAB Metoprolol Tartrate* (Lopressor tablet*) 25 Mg Tablet 25 MG PO Q12H, #60 TAB Hold for SBP below 100mm Hg Hold for Heart Rate below 60. Discontinued Medications: Home Med List (No Home Medications) Each Discharge Summary: The patient was admitted by Dr. Brooklyn Alvarez with the following HPI:"The pre senting illness patient says he has recurrent bronchitis apart from that he denies any other medical history. He says for the last 4-5 days he is having increasing shortness of breath and some dry cough. He denies any fevers or chills. He denies any history of hypertension. He was transferred to us from [facility] for an elevated blood pressure of more than 230 systolic. Patient was given couple of doses of hydralazine and the blood pressure came down to 160s and he was transferred. Patient is noted on a chest x-ray to have bilateral pneumonias he also had a CTA done at [facility]. Patient also noted to have an elevated BNP. Patient also noted to be severely hypoxemic and put him on a BiPAP machine. After his sister O2 sats have improved. Repeat labs from [facility] ordered by the ER physician are still pending." Patient has a echocardiogram which demonstrated LVEF of 55-60% the patient's high sensitivity troponin initially was 152 and peaked at 332 cardiology consult occurred and assessed that the patient has elevated troponin was secondary to hypertensive emergency and thus was secondary to a type 2 mi due to demand ischemia and not a víctor NSTEMI. The patient is on aspirin and on metoprolol The patient has a hypertensive emergency and was started on amlodipine 10 mg daily losartan 25 mg daily metoprolol tartrate 25 mg b.i.d. The patient had an elevated proBNP on admission which was assessed to be secondary to hypertensive emergency and the fact that the patient has a hypertensive heart disease without heart failure per Cardiology. The patient has an acute kidney injury on top of chronic kidney disease and his creatinine was 2.39 on admission eventually improved and was 1.77 on the day of discharge the patient is followed by Nephrology during hospitalization in his acute kidney injury was possibly secondary to renal tubular stasis. The patient was admitted with a acute respiratory failure and was on IV Solu- Medrol due to a COPD exacerbation as well as community-acquired pneumonia- was treated with IV Solu-Medrol as well as nebulizer treatments and received IV azithromycin and IV ceftriaxone the patient patient was evaluated by Dr Bella Ramos DO Infectious Disease assessed that the patient likely had a upper respiratory tract infection not bacterial in nature. Gen. No acute distress alert and oriented 4 Lungs clear to ascultation bilaterally, no wheezes rales or rhonchi appreciated Heart normal sinus rhythm no murmurs rubs or clicks noted Abdomen soft nontender bowel sounds are normoactive Lower extremities no clubbing cyanosis, nor edema appreciated bilaterally The patient felt ready to be discharged and was medically cleared to be discharged on 12/08/2024 The patient was seen and evaluated on day of discharge. Time spent on discharge 40 minutes *Problems/Diagnosis: (1) Acute kidney injury superimposed on CKD (2) Respiratory failure Status: Acute (3) Bilateral pneumonia Status: Acute Total Time Spent on D/C: > 30 Minutes Date of Service: Dec 08, 2024 Billing Provider: JASE ARROYO DO Common Visit Codes: 45814-LOT/OBS DISCH DAY >30min Problem Qualifiers (1) Respiratory failure: Qualified Codes: J96.00 - Acute respiratory failure, unspecified whether with hypoxia or hypercapnia (2) Bilateral pneumonia: Qualified Codes: J18.9 - Pneumonia, unspecified organism JASE ARROYO DO Dec 08, 2024 21:21
[2024-12-09 17:13] LABS: COXSACKIE B-1 AB 1:1000 (Neg:<1:100); COXSACKIE B-2 AB 1:500 (Neg:<1:100); COXSACKIE B-3 AB 1:500 (Neg:<1:100); COXSACKIE B-4 AB 1:500 (Neg:<1:100); COXSACKIE B-5 AB 1:1000 (Neg:<1:100); COXSACKIE B-6 AB 1:500 (Neg:<1:100)
== END 2024-12-08 13:25 | disposition home or self-care (01) | DRG 133 ==
LOC: ER 15:00 → ED HOLD 15:24 → EDBEDREQ 11-30 04:55 → ORTHO 4S 11-30 08:08 → PCU 3S 12-02 15:16
PROVIDERS: ADMIT Internal Medicine; ATTEND Internal Medicine
PROC: 5A09357 Assistance with Respiratory Ventilation, Less than 24 Consecutive Hours, Continuous Positive Airway Pressure (ICD-10-PCS; principal; 2024-11-29)
DX: J96.01 Acute respiratory failure with hypoxia (principal); I50.33 Acute on chronic diastolic (congestive) heart failure; I16.1 Hypertensive emergency; I13.0 Hypertensive heart and chronic kidney disease with heart failure and stage 1 through stage 4 chronic kidney disease, or unspecified chronic kidney disease; J18.9 Pneumonia, unspecified organism; I21.A1 Myocardial infarction type 2; J44.0 Chronic obstructive pulmonary disease with (acute) lower respiratory infection; F17.200 Nicotine dependence, unspecified, uncomplicated; Z20.822 Contact with and (suspected) exposure to COVID-19; N18.9 Chronic kidney disease, unspecified; E87.6 Hypokalemia; J43.9 Emphysema, unspecified; D72.829 Elevated white blood cell count, unspecified; N17.9 Acute kidney failure, unspecified; J44.1 Chronic obstructive pulmonary disease with (acute) exacerbation; Z79.899 Other long term (current) drug therapy
CPT/HCPCS: 36415; 36600; 71045; 71250; 76770; 80048; 80053; 80305; 81001; 82570; 82595; 82784; 82803; 83735; 83880; 83930; 83935; 84132; 84133; 84145; 84155; 84156; 84165; 84166; 84300; 84439; 84443; 84484; 84540; 85008; 85018; 85025; 85651; 85730; 86038; 86060; 86160; 86256; 86334; 86335; 86658; 86703; 87040; 87081; 87207; 87340; 87811; 93005; 93306; 94640; 94660; 94760; 99285; A4615; A4620; A6258; G0378; J0360; J0456; J0696; J1644; J1938; J2919; J3480; J3490; J7040; J7050; J7614; P9047